=== PATIENT | female | born 2000 | race American Indian/Alaskan Native ===

== ENCOUNTER 2021-05-10 11:16 | Emergency (ER) | payer SELFPAY ==
[2021-05-10] MEDS ORDERED: IBUPROFEN 800 MG TAB PO ONE (12:06)
[2021-05-10] MEDS ORDERED: LIDOCAINE (1%) 10 MG/1 ML VIAL 20 ML MDV INFILTRATI ONE (12:06)
--- NOTE | 2021-05-10 12:11 | Emergency Department Report ---
- General Chief complaint: Skin/Abscess/Foreign Body Stated complaint: BOIL Time Seen by Provider: 05/10/21 11:22 Source: patient Mode of arrival: Ambulatory Limitations: No Limitations - History of Present Illness Initial comments: The patient was evaluated in the emergency department for symptoms described in the history of present illness. He/she was evaluated in the context of the global COVID-19 pandemic, which necessitated consideration that the patient might be at risk for infection with the virus that causes COVID-19. Institutional protocols and algorithms that pertain to the evaluation of patients at risk for COVID-19 are in a state of rapid change based on information released by regulatory bodies including the CDC and federal and state organizations. These policies and algorithms were followed during the patient's care in the emergency department. Please note that these policies, procedures and recommendations changed on a rapid basis. 21-year-old morbid obese -Prydeinig female presents to the emergency room for an abscess in the anterior left cleft of her buttocks. She states has been there since Wednesday. She states she has a history of them and the last one was in 2018. She denies any fever or chills. She denies any drainage. She states that the pain is worse when she touches it or sits a certain way. She denies any past medical history does not take any meds on a daily basis and has no known drug allergies. complaint: abscess/boil Onset/Timin -: days(s) Tetanus Up to Date: yes Location: buttocks Severity: moderate Severity scale (0 -10): 7 Quality: stabbing, sharp Consistency: constant Improves with: none Worsens with: palpation Context: none Associated symptoms: denies other symptoms Treatments Prior to Arrival: none - Related Data Previous Rx's Medication Instructions Recorded Last Taken Type Ibuprofen [Motrin 800 MG tab] 800 mg PO Q8HR PRN #30 tablet 05/10/21 Unknown Rx cephALEXin [Keflex] 500 mg PO Q8HR 7 Days #21 cap 05/10/21 Unknown Rx Allergies Allergy/AdvReac Type Severity Reaction Status Date / Time No Known Allergies Allergy Unverified 05/10/21 11:21 Abscess Boil HPI - HPI Chief Complaint: Skin/Abscess/Foreign Body Stated Complaint: BOIL Time Seen by Provider: 05/10/21 11:22 Home Medications: Previous Rx's Medication Instructions Recorded Last Taken Type Ibuprofen [Motrin 800 MG tab] 800 mg PO Q8HR PRN #30 tablet 05/10/21 Unknown Rx cephALEXin [Keflex] 500 mg PO Q8HR 7 Days #21 cap 05/10/21 Unknown Rx Allergies/Adverse Reactions: Allergies Allergy/AdvReac Type Severity Reaction Status Date / Time No Known Allergies Allergy Unverified 05/10/21 11:21 ED Review of Systems ROS: Stated complaint: BOIL Other details as noted in HPI Comment: All other systems reviewed and negative Constitutional: denies: chills, fever Eyes: denies: eye pain, eye discharge, vision change ENT: denies: ear pain, throat pain Respiratory: denies: cough, shortness of breath, wheezing Cardiovascular: denies: chest pain, palpitations Endocrine: no symptoms reported Gastrointestinal: denies: abdominal pain, nausea, diarrhea Genitourinary: denies: urgency, dysuria, discharge Musculoskeletal: denies: back pain, joint swelling, arthralgia Skin: lesions. denies: rash Neurological: denies: headache, weakness, paresthesias Psychiatric: denies: anxiety, depression Hematological/Lymphatic: denies: easy bleeding, easy bruising ED Past Medical Hx - Past Medical History Previous Medical History?: Yes Hx Asthma: Yes - Surgical History Past Surgical History?: No - Medications Home Medications: Home Medications Medication Instructions Recorded Confirmed Last Taken Type Ibuprofen [Motrin 800 MG tab] 800 mg PO Q8HR PRN #30 tablet 05/10/21 Unknown Rx cephALEXin [Keflex] 500 mg PO Q8HR 7 Days #21 cap 05/10/21 Unknown Rx ED Physical Exam - General Limitations: No Limitations General appearance: alert, in no apparent distress - Head Head exam: Present: atraumatic, normocephalic - Eye Eye exam: Present: normal appearance - ENT ENT exam: Present: mucous membranes moist - Neck Neck exam: Present: normal inspection - Respiratory Respiratory exam: Absent: respiratory distress, accessory muscle use - Cardiovascular Cardiovascular Exam: Present: regular rate, normal rhythm. Absent: systolic murmur, diastolic murmur, rubs, gallop - GI/Abdominal GI/Abdominal exam: Present: soft, normal bowel sounds - Extremities Exam Extremities exam: Present: normal inspection - Back Exam Back exam: Present: normal inspection - Neurological Exam Neurological exam: Present: alert, oriented X3 - Psychiatric Psychiatric exam: Present: normal affect, normal mood - Skin Skin exam: Present: warm, dry, intact, normal color. Absent: rash - Expanded Skin Exam Expanded Type of lesion: Present: abscess Distribution of rash: genitals (Right gluteal cleft) Description of rash: Present: tenderness, swelling, indurated ED Course Vital Signs 05/10/21 11:17 Temperature 97.7 F Pulse Rate 98 H Respiratory 16 Rate Blood Pressure 132/66 [Right] O2 Sat by Pulse 98 Oximetry ED Medical Decision Making - Medical Decision Making 21-year-old morbid obese -Prydeinig female presents to the emergency room for an abscess in the anterior left cleft of her buttocks. She states has been there since Wednesday. She states she has a history of them and the last one was in 2018. She denies any fever or chills. She denies any drainage. She states that the pain is worse when she touches it or sits a certain way. She denies any past medical history does not take any meds on a daily basis and has no known drug allergies. Critical care attestation.: If time is entered above; I have spent that time in minutes in the direct care of this critically ill patient, excluding procedure time. ED Disposition Clinical Impression: Abscess of buttock, right, Severely overweight Disposition: 01 HOME / SELF CARE / HOMELESS Is pt being admited?: No Does the pt Need Aspirin: No Condition: Stable Instructions: Skin Abscess, [id number], Incision and Drainage, Care After Additional Instructions: Please complete antibiotics as prescribed. Warm compresses. You may have to return if it comes to ahead. Speak with Dr. Redmond she is a weight loss surgeon she may can give you some ideas on how to lose the weight to prevent you from having chronic disease from excessive weight. Prescriptions: cephALEXin [Keflex] 500 mg PO Q8HR 7 Days #21 cap Ibuprofen [Motrin 800 MG tab] 800 mg PO Q8HR PRN #30 tablet PRN Reason: Pain , Severe (7-10) Referrals: LAURIE REDMOND MD [Staff Physician] - 3-5 Days Forms: Work/School Release Form(ED) Time of Disposition: 12:44
[2021-05-10 13:01] VITALS: BP 136/78
== END 2021-05-10 14:13 | disposition home or self-care (01) ==
LOC: ED 11:16
DX: L02.31 Cutaneous abscess of buttock (principal); E66.01 Morbid (severe) obesity due to excess calories
CPT/HCPCS: 99282; J3490

== ENCOUNTER 2021-05-13 10:09 | Emergency (ER) | payer SELFPAY ==
--- NOTE | 2021-05-13 10:33 | Emergency Department Report ---
- General Chief complaint: Wound/Laceration Stated complaint: abscess Time Seen by Provider: 05/13/21 10:17 Source: patient Mode of arrival: Ambulatory Limitations: No Limitations - History of Present Illness Initial comments: 21-year-old -[place] female presents to the emergency room with complaints of a boil that needs to be drained. Patient states that it started on 2021-05-05 on her right inner calf of her buttocks. She states she has a history of these last one was 2018. Patient reports a past medical history of asthma has no known drug allergies currently takes no meds has been taking ibuprofen for pain. In review of patient's chart she was seen here 3 days ago and was placed on antibiotics and when the question she states that she never filled it because she did not have transportation her money. Patient denies any fever chills. complaint: abscess/boil - Related Data Previous Rx's Medication Instructions Recorded Last Taken Type Ibuprofen [Motrin 800 MG tab] 800 mg PO Q8HR PRN #30 tablet 05/10/21 Unknown Rx cephALEXin [Keflex] 500 mg PO Q8HR 7 Days #21 cap 05/10/21 Unknown Rx Allergies Allergy/AdvReac Type Severity Reaction Status Date / Time No Known Allergies Allergy Unverified 05/10/21 11:21 Abscess Boil HPI - HPI Chief Complaint: Wound/Laceration Stated Complaint: abscess Time Seen by Provider: 05/13/21 10:17 Home Medications: Previous Rx's Medication Instructions Recorded Last Taken Type Ibuprofen [Motrin 800 MG tab] 800 mg PO Q8HR PRN #30 tablet 05/10/21 Unknown Rx cephALEXin [Keflex] 500 mg PO Q8HR 7 Days #21 cap 05/10/21 Unknown Rx Allergies/Adverse Reactions: Allergies Allergy/AdvReac Type Severity Reaction Status Date / Time No Known Allergies Allergy Unverified 05/10/21 11:21 ED Review of Systems ROS: Stated complaint: abscess Other details as noted in HPI ED Past Medical Hx - Past Medical History Hx Asthma: Yes - Medications Home Medications: Home Medications Medication Instructions Recorded Confirmed Last Taken Type Ibuprofen [Motrin 800 MG tab] 800 mg PO Q8HR PRN #30 tablet 05/10/21 Unknown Rx cephALEXin [Keflex] 500 mg PO Q8HR 7 Days #21 cap 05/10/21 Unknown Rx ED Physical Exam - General Limitations: No Limitations General appearance: alert, in no apparent distress - Head Head exam: Present: atraumatic, normocephalic - Eye Eye exam: Present: normal appearance - ENT ENT exam: Present: mucous membranes moist - Neck Neck exam: Present: normal inspection - Respiratory Respiratory exam: Present: normal lung sounds bilaterally. Absent: respiratory distress - Cardiovascular Cardiovascular Exam: Present: regular rate, normal rhythm. Absent: systolic murmur, diastolic murmur, rubs, gallop - GI/Abdominal GI/Abdominal exam: Present: soft, normal bowel sounds - Extremities Exam Extremities exam: Present: normal inspection - Back Exam Back exam: Present: normal inspection - Neurological Exam Neurological exam: Present: alert, oriented X3, normal gait - Psychiatric Psychiatric exam: Present: normal affect, normal mood - Skin Skin exam: Present: warm, dry, intact, normal color. Absent: rash - Expanded Skin Exam Expanded Type of lesion: Present: abscess Description of rash: Present: erythematous, swelling, indurated. Absent: fluctuant ED Course Vital Signs 05/13/21 10:15 Temperature 99.2 F Pulse Rate 87 Respiratory 16 Rate Blood Pressure 163/73 O2 Sat by Pulse 99 Oximetry ED Medical Decision Making - Medical Decision Making 21-year-old -[place] female presents to the emergency room with complaints of a boil that needs to be drained. Patient states that it started on 2021-05-05 on her right inner calf of her buttocks. She states she has a history of these last one was 2018. Patient reports a past medical history of asthma has no known drug allergies currently takes no meds has been taking ibuprofen for pain. In review of patient's chart she was seen here 3 days ago and was placed on antibiotics and when the question she states that she never filled it because she did not have transportation her money. Patient denies any fever chills. Discussed with patient she needs to fill her prescription for antibiotic and start taking it. She can get Tylenol or ibuprofen as needed for pain management. Critical care attestation.: If time is entered above; I have spent that time in minutes in the direct care of this critically ill patient, excluding procedure time. ED Disposition Clinical Impression: Abscess of buttock, right, Severely overweight Disposition: HOME / SELF CARE / HOMELESS Is pt being admited?: No Does the pt Need Aspirin: No Condition: Stable Instructions: Skin Abscess, [id number] Additional Instructions: Your boil/abscess is not ready to be incised and drained. It is very important you start the antibiotics so this can improve. He will continue to be in discomfort if you do not take care of this by taking your antibiotics. Follow- up with a primary care provider. Referrals: [facility] [Provider Group] - 3-5 Days [facility] [Provider Group] - 3-5 Days Forms: Work/School Release Form(ED) Time of Disposition: 10:35
[2021-05-13 11:02] VITALS: BP 120/80
== END 2021-05-13 11:01 | disposition home or self-care (01) ==
LOC: ED 10:09
DX: L02.31 Cutaneous abscess of buttock (principal)
CPT/HCPCS: 99282

== ENCOUNTER 2021-07-21 15:06 | Emergency (ER) | payer SELFPAY ==
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
[2021-07-21 19:14] VITALS: BP 125/87
== END 2021-07-21 19:11 | disposition home or self-care (01) ==
LOC: ED 15:06
DX: M54.50 Low back pain, unspecified (principal); F41.9 Anxiety disorder, unspecified; J45.909 Unspecified asthma, uncomplicated; Z79.899 Other long term (current) drug therapy; V09.9XXA Pedestrian injured in unspecified transport accident, initial encounter; Y93.89 Activity, other specified; Y92.488 Other paved roadways as the place of occurrence of the external cause; Y99.8 Other external cause status
CPT/HCPCS: 99282